=== PATIENT | female | born 1965 ===

== ENCOUNTER 2016-05-12 10:34 | Emergency (ER) | payer OTHER ==
[~2016-05-12] VITALS: Ht 162.6 cm; Wt 74.8 kg
--- NOTE | 2016-05-12 11:01 | NUR ---
urine sent to lab
[2016-05-12 11:15] LABS: *BILIRUBIN,URIN NEGATIVE (NEGATIVE); *BLOOD, URINE NEGATIVE (NEGATIVE); *CLARITY,URINE CLEAR (CLEAR); *COLOR,URINE YELLOW (YELLOW); *KETONES,URINE NEGATIVE (NEGATIVE); *PROTEIN,URINE NEGATIVE (NEGATIVE); *UROBILINOGEN,URINE 0.2 E.U./dl (NORMAL); LEUKOCYTE ESTERASE ,URINE NEGATIVE (NEGATIVE); NITRITE, URINE NEGATIVE (NEGATIVE); UGLUCOSE NEGATIVE (NEGATIVE)
[2016-05-12 11:16] LABS: BASOPHILS % (AUTO) 0.7 % (0.0-2.0); EOSINOPHILS # (AUTO) 0.2 K/uL (0.0-0.7); HEMATOCRIT 34.7 % (37.0-47.0); HEMOGLOBIN 11.9 g/dL (12.0-16.0); LYMPHOCYTES # (AUTO) 1.8 K/uL (0.8-4.8); LYMPHOCYTES % (AUTO) 34.2 % (20.5-51.5); MEAN CORPUSCULAR HEMOGLOBIN 29.4 uug (27.0-31.0); MEAN CORPUSCULAR HGB CONC 34 g/dL (32.0-37.0); MEAN CORPUSCULAR VOLUME 85.7 fL (81.0-99.0); MONOCYTES # (AUTO) 0.6 K/uL (0.1-1.30); MONOCYTES % (AUTO) 12.3 % (0.0-11.0); NEUTROPHILS # (AUTO) 2.7 K/uL (1.8-8.9); NEUTROPHILS % (AUTO) 48.8 % (38.5-71.5); PLATELET COUNT (AUTO) 204 K/uL (150-450); RED BLOOD CELL COUNT(AUTO) 4.05 MIL/uL (4.20-5.40); RED CELL DISTRIBUTION WIDTH 13.3 % (11.5-14.5); WHITE BLOOD COUNT (AUTO) 5.3 K/uL (4.0-11.2)
[2016-05-12 11:23] LABS: BACTERIA,URINE FEW /HPF (NONE SEEN); RBC,URINE 0-3 /HPF (0-3); SQUAMOUS EPITHELIAL CELL,UR FEW /HPF (NONE SEEN); WBC,URINE 0-3 /HPF (0-3)
[2016-05-12 11:53] LABS: ALBUMIN 3.5 g/dL (3.4-5.0); BILIRUBIN,DIRECT 0.1 mg/dL (0.0-0.2); BILIRUBIN,TOTAL 0.2 mg/dL (0.2-1.0); CALCIUM 8.7 mg/dL (8.5-10.1); CREATININE 0.8 mg/dL (0.6-1.3); POTASSIUM 4.2 mmol/L (3.5-5.1); TOTAL PROTEIN, SERUM 6.9 g/dL (6.4-8.2)
[2016-05-12] MEDS ORDERED: HYDROCODONE/APAP 5-325MG TABLET PO ONE (12:15)
--- NOTE | 2016-05-12 12:16 | NUR ---
mse completed, pt d/c'd home. [facility] RX X1 GIVEN PT GOT DRESSED AND AMBULATED W/O DIFF/TOOK ALL BELONGINGS, PT SIG OTHER PRESENT AND TO DRIVE.
[2016-05-12] MEDS ORDERED: HYDROCODONE/APAP 5-325MG TABLET ONE (12:17)
[2016-05-12 12:18] VITALS: BP 122/74
[2016-05-12 12:42] LABS: EOSINOPHILS % (MANUAL) 3 % (0-8); LYMPHOCYTES % (MANUAL) 40 % (20-40); MONOCYTES % (MANUAL) 9 % (2-10); NEUTROPHILS % (MANUAL) 48 % (42-75)
== END 2016-05-12 12:19 | disposition home or self-care (01) ==
LOC: ER 10:34
DX: D36.7 Benign neoplasm of other specified sites (principal); R10.2 Pelvic and perineal pain
CPT/HCPCS: 36415; 76856; 80048; 80076; 81001; 83690; 85025; 99285; A4663